=== PATIENT | female | born 1965 | race Caucasian/White ===

== ENCOUNTER 2021-03-10 10:58 | Emergency (ER) | payer OTHER ==
[2021-03-10 11:11] VITALS: TEMP 98.6; BMI 19.5
[2021-03-10] MEDS ORDERED: LACTATED RINGERS SOLUTION 1000 ML INFUS.BAG IV ONE (11:20)
[2021-03-10 12:02] LABS: BASO % 2.5 % (0-2.0); EOS % 1.3 % (0-4.5); HEMATOCRIT 44.4 % (32.4-45.2); HEMOGLOBIN 15.2 GM/dl (10.7-15.3); LYMPH % 17.4 % (8-40); MCH 30.8 pg (25.7-33.7); MCHC 34.2 g/dl (32.0-36.0); MEAN PLT VOLUME 8.9 fl (7.5-11.1); MONO % 4.7 % (3.8-10.2); NEUT % 74.1 % (42.8-82.8); PLATELET COUNT 202 10^3/uL (134-434); RBC 4.93 M/mm3 (3.60-5.2); RDW 11.8 % (11.6-15.6); WHITE BLOOD COUNT 6.6 K/mm3 (4.0-10.8)
[2021-03-10 12:26] LABS: ALBUMIN 3.8 g/dl (3.4-5.0); ALK PHOS 69 U/L (45-117); ANION GAP 9 MMOL/L (8-16); CALCIUM 8.9 mg/dl (8.5-10); CHLORIDE 105 mmol/L (98-107); CO2 23 mmol/L (21-32); CREATININE 0.8 mg/dl (0.55-1.3); GLUCOSE,RANDOM 125 mg/dl (74-106); SGOT/AST 20 U/L (15-37); SGPT/ALT 17 U/L (13-61); SODIUM 137 mmol/L (136-145); TOT PROT 6.8 g/dl (6.4-8.2)
[2021-03-10 12:28] LABS: ACTIVATED PTT 24.7 SECONDS (25.2-36.5)
[2021-03-10 12:32] LABS: INR 1.12 (0.82-1.09); PROTHROMBIN TIME (PATIENT) 12.4 SEC (10.2-13.0)
[2021-03-10 14:19] VITALS: BP 124/55; PULSE 61
== END 2021-03-10 14:19 | disposition home or self-care (01) ==
LOC: FER 10:58
DX: R55 Syncope and collapse (principal)
CPT/HCPCS: 36415; 70450-TC; 71045-TC-FY; 80053; 81003; 82550; 84484; 84703; 85025; 85610; 85730; 93005; 99285-25; C9803; U0003; U0005